=== PATIENT | female | born 1975 | race Caucasian/White ===

== ENCOUNTER 2018-11-15 17:02 | Emergency (ER) | payer BC ==
[2018-11-15] MEDS ORDERED: Ondansetron 4 MG/2 ML SDV IVPUSH ONE (17:36)
--- NOTE | 2018-11-15 17:42 | EDM.PDOC ---
ED HPI GENERAL MEDICAL PROBLEM - General Chief Complaint: Abdominal Pain Stated Complaint: PAIN ON RI SIDE Time Seen by Provider: 11/15/18 17:26 Source of Information: Reports: Patient History Limitations: Reports: No Limitations - History of Present Illness INITIAL COMMENTS - FREE TEXT/NARRATIVE: 43 yo female presents to ER with RLQ ABD pain. pain started 3 days ago, she was feeling better this AM until afetr she ate lunch then pain worsened. Pt also developed fever today. She has Surgical hx of hysterectomy with right ovary remaining. ABD pain with urination mild right sided flank pain. pain worse when standing. Right Lower Abdominal Pain Score (Numeric/FACES): 7 - Related Data Allergies Allergy/AdvReac Type Severity Reaction Status Date / Time Latex, Natural Rubber Allergy Rash Verified 11/15/18 17:22 Home Meds: Home Meds *Hairskinnails 1 tab PO DAILY 02/21/15 [History] Calcium Citrate/Vitamin D3 [Calcitrate + Vit D Cap (315 MG/250 UNITS)] 1 each PO DAILY 02/21/15 [History] Past Medical History [employer]ATOR History: Reports: - Past Surgical History Female Surgical History: Reports: Hysterectomy, Oophorectomy Social & Family History - Tobacco Use Smoking Status *Q: Never Smoker - Recreational Drug Use Recreational Drug Use: No - Living Situation & Occupation Living situation: Reports: , with Spouse Occupation: Employed ED ROS GENERAL - Review of Systems Review Of Systems: See Below Constitutional: Reports: Fever, Chills, Malaise, Fatigue Respiratory: Denies: Shortness of Breath, Wheezing Cardiovascular: Denies: Chest Pain GI/Abdominal: Reports: Abdominal Pain, Anorexia, Constipation. Denies: Diarrhea ED EXAM, GI/ABD - Physical Exam Exam: See Below Exam Limited By: No Limitations General Appearance: Alert, WD/WN, No Apparent Distress Respiratory/Chest: No Respiratory Distress, Lungs Clear, Normal Breath Sounds, No Accessory Muscle Use, Chest Non-Tender. No: Crackles, Rhonchi, Wheezing Cardiovascular: Normal Peripheral Pulses, No Edema, No Gallop, No JVD, No Murmur , Tachycardia GI/Abdominal Exam: Normal Bowel Sounds, Soft, No Organomegaly, No Distention, Tender (RLQ and RUQ) Back Exam: No: CVA Tenderness (R), CVA Tenderness (L) Neurological: Alert, Oriented Psychiatric: Normal Affect, Normal Mood Skin Exam: Warm, Dry, Intact Course - Vital Signs Last Recorded V/S: Last Vital Signs Temp 37.8 C 11/15/18 20:04 Pulse 88 11/15/18 20:04 Resp 16 11/15/18 20:04 BP 88/43 L 11/15/18 20:04 Pulse Ox 95 11/15/18 20:04 - Orders/Labs/Meds Orders: Active Orders 24 hr Category Date Time Status CULTURE BLOOD [BC] Urgent Lab 11/15/18 17:45 Received CULTURE BLOOD [BC] Urgent Lab 11/15/18 17:52 Received Ibuprofen [Motrin] Med 11/15/18 20:22 Once 400 mg PO ONETIME ONE Iopamidol [Isovue-300 (61%)] Med 11/15/18 19:00 Active 88 ml IV . DIRECTED Sodium Chloride 0.9% [Normal Saline] 1,000 ml Med 11/15/18 17:45 Active IV ASDIRECTED Sulfamethoxazole/Trimethoprim [Septra DS] Med 11/15/18 20:23 Once 1 tab PO ONETIME ONE Blood Culture x2 Reflex Set [OM.PC] Urgent Oth 11/15/18 17:35 Ordered Medication Orders Sodium Chloride (Normal Saline) 1,000 mls @ 500 mls/hr IV ASDIRECTED [facility] Last Admin: 11/15/18 17:47 Dose: 500 mls/hr Iopamidol (Isovue-300 (61%)) 88 ml IV . DIRECTED [facility] Last Admin: 11/15/18 19:09 Dose: 100 ml Labs: Laboratory Tests 11/15/18 11/15/18 11/15/18 Range/Units 17:28 17:45 17:45 WBC 15.9 H (4.5-11.0) K/uL RBC 4.53 (3.30-5.50) M/uL Hgb 13.2 (12.0-15.0) g/dL Hct 39.3 (36.0-48.0) % MCV 87 (80-98) fL MCH 29 (27-31) pg MCHC 34 (32-36) % Plt Count 264 (150-400) K/uL Neut % (Auto) 86 H (36-66) % Lymph % (Auto) 6 L (24-44) % Moody % (Auto) 7 H (2-6) % Eos % (Auto) 1 L (2-4) % Baso % (Auto) 0 (0-1) % Sodium 139 L (140-148) mmol/L Potassium 3.8 (3.6-5.2) mmol/L Chloride 103 (100-108) mmol/L Carbon Dioxide 25 (21-32) mmol/L Anion Gap 14.8 H (5.0-14.0) mmol/L BUN 17 (7-18) mg/dL Creatinine 0.8 (0.6-1.0) mg/dL Est Cr Clr Drug Dosing 63.79 mL/min Estimated GFR (MDRD) > 60 (>60) Glucose 90 (74-106) mg/dL Lactic Acid (0.4-2.0) mmol/L Calcium 9.1 (8.5-10.1) mg/dL Total Bilirubin 0.4 (0.2-1.0) mg/dL AST 20 (15-37) U/L ALT 24 (12-78) U/L Alkaline Phosphatase 69 (46-116) U/L Total Protein 7.5 (6.4-8.2) g/dL Albumin 3.8 (3.4-5.0) g/dL Globulin 3.7 H (2.3-3.5) g/dL Albumin/Globulin Ratio 1.0 L (1.2-2.2) Urine Color Yellow Urine Appearance Clear Urine pH 6.0 (4.5-8.0) Ur Specific [place] 1.015 (1.008-1.030) Urine Protein Negative (NEGATIVE) mg/dL Urine Glucose (UA) Normal (NEGATIVE) mg/dL Urine Ketones Negative (NEGATIVE) mg/dL Urine Occult Blood Negative (NEGATIVE) Urine Nitrite Negative (NEGATIVE) Urine Bilirubin Negative (NEGATIVE) Urine Urobilinogen Normal (NORMAL) mg/dL Ur Leukocyte Esterase Negative (NEGATIVE) Urine RBC 0-5 (0-5) Urine WBC Not seen (0-5) Ur Epithelial Cells Moderate Amorphous Sediment Not seen Urine Bacteria Moderate Urine Mucus Not seen 11/15/18 Range/Units 17:45 WBC (4.5-11.0) K/uL RBC (3.30-5.50) M/uL Hgb (12.0-15.0) g/dL Hct (36.0-48.0) % MCV (80-98) fL MCH (27-31) pg MCHC (32-36) % Plt Count (150-400) K/uL Neut % (Auto) (36-66) % Lymph % (Auto) (24-44) % Moody % (Auto) (2-6) % Eos % (Auto) (2-4) % Baso % (Auto) (0-1) % Sodium (140-148) mmol/L Potassium (3.6-5.2) mmol/L Chloride (100-108) mmol/L Carbon Dioxide (21-32) mmol/L Anion Gap (5.0-14.0) mmol/L BUN (7-18) mg/dL Creatinine (0.6-1.0) mg/dL Est Cr Clr Drug Dosing mL/min Estimated GFR (MDRD) (>60) Glucose (74-106) mg/dL Lactic Acid 0.9 (0.4-2.0) mmol/L Calcium (8.5-10.1) mg/dL Total Bilirubin (0.2-1.0) mg/dL AST (15-37) U/L ALT (12-78) U/L Alkaline Phosphatase (46-116) U/L Total Protein (6.4-8.2) g/dL Albumin (3.4-5.0) g/dL Globulin (2.3-3.5) g/dL Albumin/Globulin Ratio (1.2-2.2) Urine Color Urine Appearance Urine pH (4.5-8.0) Ur Specific [place] (1.008-1.030) Urine Protein (NEGATIVE) mg/dL Urine Glucose (UA) (NEGATIVE) mg/dL Urine Ketones (NEGATIVE) mg/dL Urine Occult Blood (NEGATIVE) Urine Nitrite (NEGATIVE) Urine Bilirubin (NEGATIVE) Urine Urobilinogen (NORMAL) mg/dL Ur Leukocyte Esterase (NEGATIVE) Urine RBC (0-5) Urine WBC (0-5) Ur Epithelial Cells Amorphous Sediment Urine Bacteria Urine Mucus Meds: Medications Generic Name Dose Route Start Last Admin Trade Name Freq PRN Reason Stop Dose Admin Sodium Chloride 1,000 mls @ 500 mls/hr 11/15/18 17:45 11/15/18 17:47 Normal Saline IV 500 mls/hr ASDIRECTED ARVIND Administration Iopamidol 88 ml 11/15/18 19:00 07/05/19 19:09 Isovue-300 (61%) IV 100 ml . DIRECTED ARVIND Administration Discontinued Medications Generic Name Dose Route Start Last Admin Trade Name Ty PRN Reason Stop Dose Admin Sodium Chloride 100 mls @ 3 mls/sec 11/15/18 18:49 11/15/18 19:09 Normal Saline IV 11/15/18 18:50 3 mls/sec ONETIME ONE Administration Ondansetron HCl 4 mg 11/15/18 17:36 11/15/18 17:56 Zofran IVPUSH 11/15/18 17:37 4 mg ONETIME ONE Administration - Radiology Interpretation CT Results Date: 11/15/18 (no acute abnormalities) - Re-Assessments/Exams Free Text/Narrative Re-Assessment/Exam: 11/15/18 20:26 WBC elevated at 15.9 without shift. Moderate bacteria in urine without WBC culture is pending will treat as acute UTI Departure - Departure Time of Disposition: 20:28 Disposition: Home, Self-Care 01 Condition: Good Clinical Impression: Acute cystitis Qualifiers: Hematuria presence: without hematuria Qualified Code(s): N30.00 - Acute cystitis without hematuria - Discharge Information *PRESCRIPTION DRUG MONITORING PROGRAM REVIEWED*: Not Applicable *COPY OF PRESCRIPTION DRUG MONITORING REPORT IN PATIENT JAMMIE: Not Applicable Instructions: Urinary Tract Infection, Adult, [id number] Referrals: Juan R Bateman MD [Primary Care Provider] - Forms: ED Department Discharge Additional Instructions: Bactrim DS 1 tablet twice for 5 days Increase fluid intake with goal of 1.5 liters per day if no improvement in 48 hours you need to be seen again - My Orders Last 24 Hours: My Active Orders 11/15/18 17:35 Blood Culture x2 Reflex Set [OM.PC] Urgent 11/15/18 17:45 CULTURE BLOOD [BC] Urgent Sodium Chloride 0.9% [Normal Saline] 1,000 ml IV ASDIRECTED 11/15/18 17:52 CULTURE BLOOD [BC] Urgent 11/15/18 19:00 Iopamidol [Isovue-300 (61%)] 88 ml IV . DIRECTED 11/15/18 20:22 Ibuprofen [Motrin] 400 mg PO ONETIME ONE 11/15/18 20:23 Sulfamethoxazole/Trimethoprim [Septra DS] 1 tab PO ONETIME ONE - Assessment/Plan Last 24 Hours: My Active Orders 11/15/18 17:35 Blood Culture x2 Reflex Set [OM.PC] Urgent 11/15/18 17:45 CULTURE BLOOD [BC] Urgent Sodium Chloride 0.9% [Normal Saline] 1,000 ml IV ASDIRECTED 11/15/18 17:52 CULTURE BLOOD [BC] Urgent 11/15/18 19:00 Iopamidol [Isovue-300 (61%)] 88 ml IV . DIRECTED 11/15/18 20:22 Ibuprofen [Motrin] 400 mg PO ONETIME ONE 11/15/18 20:23 Sulfamethoxazole/Trimethoprim [Septra DS] 1 tab PO ONETIME ONE
[2018-11-15] MEDS ORDERED: Sodium Chloride 0.9% 1,000 ML IV SCH (17:45)
[2018-11-15] MEDS ORDERED: Sodium Chloride 0.9% 100 ML IV ONE (18:49)
[2018-11-15] MEDS ORDERED: Iopamidol 612 MG/ML 100 ML Bottle IV SCH (19:00)
[2018-11-15 20:05] VITALS: BP 88/43; PULSE 88
--- NOTE | 2018-11-15 20:14 | CRLCT ---
INDICATION: Right lower quadrant abdominal pain. TECHNIQUE: CT scan of the abdomen and pelvis with 80 cc of Isovue-300 given intravenously. FINDINGS: The lung bases are unremarkable. No focal abnormalities identified in the visualized portions of the liver, spleen, pancreas, adrenal glands, and kidneys. No hydronephrosis. No obstructing uroliths. The GI tract is incompletely distended but shows no gross abnormalities. The stomach and GE junction are not well assessed. Normal appendix. No retroperitoneal, pelvic sidewall, or mesenteric adenopathy. IMPRESSION: 1. No acute abnormalities of the abdomen or pelvis identified. Please note that all CT scans at this facility use dose modulation, iterative reconstruction, and\or weight-based dosing when appropriate to reduce radiation dose to as low as reasonable achievable. Dictated by Iban Collier MD @ 11/15/2018 8:12:27 PM Dictated by: Iban Collier MD @ 11/15/2018 20:12:40 (Electronically Signed) MTDD
[2018-11-15] MEDS ORDERED: Ibuprofen 400 MG Tab PO ONE (20:22)
[2018-11-15] MEDS ORDERED: Sulfamethoxazole/Trimethoprim 800-160 MG Tab PO ONE (20:23)
== END 2018-11-15 21:02 | disposition home or self-care (01) ==
LOC: JP.ED 17:02
DX: N30.00 Acute cystitis without hematuria (principal); Z90.710 Acquired absence of both cervix and uterus; Z91.040 Latex allergy status
CPT/HCPCS: 36415; 74177; 80053; 81001; 83605; 85025; 87040; 87086; 96361; 96374; 99284; A9270; J2405; J7030; Q9967